=== PATIENT | male | born 1965 | race Caucasian/White ===

== ENCOUNTER 2018-10-21 18:23 | Emergency (ER) | payer OTHER ==
[~2018-10-21] VITALS: Ht 162.6 cm; Wt 72.6 kg
[~2018-10-21 18:23] MED LIST: ACYCLOVIR 400400 MG PO; IBUPROFEN 800800 MG PO; LEVAQUIN 750 M750 MG PO; NAPROSYN500 MG PO; NORCO 5-325 TA1 EACH PO; PRILOSEC 20 MG20 MG PO; REGLAN 10 MG TA10 MG PO; VENTOLIN HFA INH8 GM INH; ZOFRAN4 MG PO; ZPAK PO
[2018-10-21 19:19] LABS: URINE BILIRUBIN NEGATIVE (Negative); URINE BLOOD 1+ (Negative); URINE CLARITY CLEAR; URINE COLOR YELLOW; URINE GLUCOSE-RANDOM* NEGATIVE (Negative); URINE KETONES TRACE (Negative); URINE LEUKOCYTES-REFLEX NEGATIVE (Negative); URINE NITRITE-REFLEX NEGATIVE (Negative); URINE PROTEIN (DIPSTICK) 2+ (Negative); URINE SPECIFIC GRAVITY >= 1.030 (1.005-1.035)
[2018-10-21 19:34] LABS: ABSOLUTE NEUTROPHILS 3.2 thou/uL (1.4-8.2); BASOPHILS 0.5 % (0.0-2.0); EOSINOPHILS 2.8 % (0.0-3.0); HEMATOCRIT 50.8 % (42.0-52.0); HEMOGLOBIN 16.5 gm/dL (14.0-18.0); LYMPHOCYTES 35.2 % (24.0-44.0); MCHC 32.5 g/dL (28.0-37.0); MCV 86.4 fL (80.0-100.0); PLATELET COUNT 203 thou/uL (150-400); POLYS 51.5 % (36.0-66.0); RBC 5.89 mil/uL (4.50-6.00); RDW 15.3 % (10.5-14.5); WBC 6.3 thou/uL (4.0-11.0)
[2018-10-21 19:39] LABS: BACTERIA-REFLEX None Seen /HPF (None Seen); CALCIUM OXALATE >10 Many /LPF (None Seen); CASTS None Seen /LPF (None Seen); SQUAMOUS 0-3 Few /LPF (0-3); URINE RBC 3-10 Few /HPF (0-2); URINE WBC-REFLEX 6-15 Few /HPF (0-5)
[2018-10-21 19:43] LABS: CALCIUM 9.1 mg/dL (8.5-10.1); POTASSIUM 3.8 mmol/L (3.5-5.1)
[2018-10-21 19:49] LABS: ALBUMIN 3.8 g/dL (3.4-5.0); TOTAL BILIRUBIN 0.4 mg/dL (<0.1-1.0); TOTAL PROTEIN 8.5 g/dL (6.4-8.2)
[2018-10-21] MEDS ORDERED: ZOFRAN ODT4 MG PO (20:12)
[2018-10-21] MEDS ORDERED: NORCO 5-325 TA1 EAC1 PO (20:12)
[2018-10-21] MEDS ORDERED: PHENERGAN 25 MG25 M1 PO (20:12)
[2018-10-21] MEDS ORDERED: LOPERAMIDE 2 MG2 M1 PO (20:12)
[2018-10-21 21:09] VITALS: BP 125/77
== END 2018-10-21 21:11 | disposition home or self-care (01) ==
LOC: ER 18:23
PROVIDERS: Emergency Medicine
DX: A08.4 Viral intestinal infection, unspecified (principal); F17.210 Nicotine dependence, cigarettes, uncomplicated; Z21 Asymptomatic human immunodeficiency virus [HIV] infection status

== ENCOUNTER 2018-12-21 11:58 | Emergency (ER) | payer OTHER ==
[~2018-12-21] VITALS: Ht 162.6 cm; Wt 73.5 kg
[~2018-12-21 11:58] MED LIST changes: +LOPERAMIDE 2 MG2 M1 PO; +NORCO 5-325 TA1 EAC1 PO; +PHENERGAN 25 MG25 M1 PO; +ZOFRAN ODT4 MG PO
[2018-12-21] MEDS ORDERED: PROLOPRIM100 MG PO (12:19)
[2018-12-21 12:51] LABS: URINE BLOOD 3+ (Negative); URINE CLARITY CLEAR; URINE COLOR YELLOW; URINE GLUCOSE-RANDOM* NEGATIVE (Negative); URINE KETONES NEGATIVE (Negative); URINE LEUKOCYTES 1+ (Negative); URINE NITRITE NEGATIVE (Negative); URINE PROTEIN (DIPSTICK) 1+ (Negative); URINE SPECIFIC GRAVITY >= 1.030 (1.005-1.035)
[2018-12-21 12:54] LABS: ICTOTEST (BILI CONFIRMATORY) Negative (Negative); URINE BILIRUBIN NEGATIVE (Negative)
[2018-12-21 12:55] LABS: SQUAMOUS None Seen /LPF (0-3)
[2018-12-21 12:56] LABS: BACTERIA 1-9 Few /HPF (None Seen); CASTS None Seen /LPF (None Seen); CRYSTALS None Seen /LPF (None Seen); URINE WBC >25 Many /HPF (0-5)
[2018-12-21 13:07] LABS: CALCIUM 9.5 mg/dL (8.5-10.1); CREATININE 1.1 mg/dL (0.7-1.3); POTASSIUM 4.3 mmol/L (3.5-5.1)
[2018-12-21 13:22] LABS: HEMOGLOBIN 14.5 gm/dL (14.0-18.0); MCH 27.4 pg (26.0-34.0); MCHC 32.3 g/dL (28.0-37.0); MCV 84.8 fL (80.0-100.0); PLATELET COUNT 196 thou/uL (150-400); RBC 5.31 mil/uL (4.50-6.00); RDW 16.8 % (10.5-14.5); WBC 7.5 thou/uL (4.0-11.0)
[2018-12-21 13:42] LABS: ABSOLUTE NEUTROPHILS 5.1 thou/uL (1.4-8.2); ANISOCYTOSIS 1+
[2018-12-21] MEDS ORDERED: NORCO 5-325 TA1 EAC1 PO (14:52)
[2018-12-21] MEDS ORDERED: LEVAQUIN 500 M500 M2 PO (14:52)
[2018-12-21 14:55] VITALS: BP 109/76
== END 2018-12-21 14:55 | disposition home or self-care (01) ==
LOC: ER 11:58
PROVIDERS: Emergency Medicine
DX: N45.1 Epididymitis (principal); R31.9 Hematuria, unspecified; F17.210 Nicotine dependence, cigarettes, uncomplicated; Z79.899 Other long term (current) drug therapy